=== PATIENT | male | born 1965 | race African-American/Black ===

== ENCOUNTER 2021-09-05 08:07 | Outpatient (CLI) | payer MEDICARE, MEDICAID ==
[2021-09-05 21:33] LABS: SARS-CoV-2 PCR by NAA Not Detected (NotDetected)
== END 2021-09-05 08:08 | disposition home or self-care (01) ==
LOC: CSHLAB 08:07
PROVIDERS: ATTEND Internal Medicine Gastroenterology
DX: Z20.822 Contact with and (suspected) exposure to COVID-19 (principal); Z12.11 Encounter for screening for malignant neoplasm of colon
CPT/HCPCS: U0003; U0005

== ENCOUNTER 2021-09-06 09:17 | Day surgery (SDC) | payer MEDICARE, MEDICAID ==
[2021-09-04 12:21] VITALS: BMI 28.0
[2021-09-06] MEDS ORDERED: Lidocaine 1% MPF 2 ML VIAL ONE (10:14)
[2021-09-06] MEDS ORDERED: Lidocaine 1% PF 5 ML VIAL ONE (11:09)
[2021-09-06] MEDS ORDERED: PROPOFOL 40 ML ONE (11:09)
== END 2021-09-06 12:08 | disposition home or self-care (01) ==
LOC: CSHSDC 09:17
PROVIDERS: ATTEND Internal Medicine Gastroenterology
PROC: 0DJD8ZZ Inspection of Lower Intestinal Tract, Via Natural or Artificial Opening Endoscopic (ICD-10-PCS; principal; 2021-09-06)
DX: Z12.11 Encounter for screening for malignant neoplasm of colon (principal); K57.30 Diverticulosis of large intestine without perforation or abscess without bleeding; K64.9 Unspecified hemorrhoids; E11.9 Type 2 diabetes mellitus without complications; J44.9 Chronic obstructive pulmonary disease, unspecified; E78.5 Hyperlipidemia, unspecified; I10 Essential (primary) hypertension; G47.30 Sleep apnea, unspecified; Z90.49 Acquired absence of other specified parts of digestive tract; E66.9 Obesity, unspecified; F17.210 Nicotine dependence, cigarettes, uncomplicated
CPT/HCPCS: 82962; G0121; 36416; J2704